=== PATIENT | male | born 1955 | race Caucasian/White ===

== ENCOUNTER 2020-10-21 10:09 | Emergency (ER) | payer MEDICARE, SELFPAY ==
[2020-10-21 10:20] VITALS: BP 147/86; PULSE 77; RESP 18; TEMP 36.9; O2SAT 97; BMI 22.6
--- NOTE | 2020-10-21 10:51 | ED_ITS ---
HPI - General Adult General Chief complaint: General Medical <SHANIQUE Gonzalez Last Filed: 10/21/20 17:59> Stated complaint: DEHYDRATION <SHANIQUE Gonzalez Last Filed: 10/21/20 17:59> Time Seen by Provider: 10/21/20 10:45 <SHANIQUE Gonzalez Last Filed: 10/21/20 17:59> Source: patient <SHANIQUE Gonzalez Last Filed: 10/21/20 17:59> Mode of arrival: ambulatory <SHANIQUE Gonzalez Last Filed: 10/21/20 17:59> Limitations: no limitations <SHANIQUE Gonzalez Last Filed: 10/21/20 17:59> History of Present Illness HPI narrative: Patient presents to ED requesting IV fluids for hydration. Patient was sent by Kalie blake to received IV fluids. Patient having viral syndrome for the past 4 days such as fever, nausea, vomiting, and body aches. Patient states he started having symptoms after his granddaughter had similar symptoms. Patient had blood work at [facility] urgent care yesterday and called him this morning informed his lab was normal and only think he needed was fluids for hydration and follow-up with PCP. Patient urine showed mild ketones. Patient denies any headache, photophobia, chest pain, shortness of breath, abdominal pain, dysuria, hematuria, flank pain. <SHANIQUE Gonzalez Last Filed: 10/21/20 17:59> Related Data Allergies/adverse reactions: Allergies Allergy/AdvReac Type Severity Reaction Status Date / Time No Known Allergies Allergy Verified 10/21/20 10:45 <SHANIQUE Gonzalez Last Filed: 10/21/20 17:59> Review of Systems Review of Systems: Yes all other systems are reviewed and are negative <SHANIQUE Gonzalez Last Filed: 10/21/20 17:59> Eyes: Eyes: Reports as per HPI and Reports no additional eye complaints <SHANIQUE Gonzalez Last Filed: 10/21/20 17:59> ENT: Reports system reviewed and no additional complaints, except as documente d and Reports as per HPI <SHANIQUE Gonzalez Last Filed: 10/21/20 17:59> Cardiovascular: Cardiovascular: Reports as per HPI and Reports no additional cardiovascular complaints <SHANIQUE Gonzalez - Last Filed: 10/21/20 17:59> Respiratory: Respiratory: Reports as per HPI and Reports no additional respiratory complaints <SHANIQUE Gonzalez - Last Filed: 10/21/20 17:59> Gastrointestinal: Gastrointestinal: Reports as per HPI and Reports no additional gastrointestinal complaints <SHANIQUE Gonzalez - Last Filed: 10/21/20 17:59> Genitourinary: Genitourinary: Reports no additional male genitourinary complaints and Reports as per HPI <SHANIQUE Gonzalez - Last Filed: 10/21/20 17:59> Musculoskeletal: Musculoskeletal: Reports no additional musculoskeletal complaints and Reports as per HPI <SHANIQUE Gonzalez - Last Filed: 10/21/20 17:59> Neurologic: Reports system reviewed and no additional complaints, except as documented and Reports as per HPI <SHANIQUE Gonzalez - Last Filed: 10/21/20 17:59> Psychiatric: Psychiatric: Reports no additional psychiatric complaints and Reports as per HPI <SHANIQUE Gonzalez - Last Filed: 10/21/20 17:59> [facility] Past Medical History Medical History: Medical History (Updated 10/22/20 @ 00:01 by Dennys Mendez) Hernia Menieres disease <SHANIQUE Gonzalez - Last Filed: 10/21/20 17:59> Social History Social History: Social History Advance Directives: Yes Advance Directives Information Provided: No Advance Directives on File: No <SHANIQUE Gonzalez - Last Filed: 10/21/20 17:59> Physical Exam Vital Signs: Vital Signs: Last Vital Signs Temp 98.5 F 10/21/20 10:20 Pulse 77 10/21/20 10:20 Resp 18 10/21/20 10:20 BP 147/86 H 10/21/20 10:20 Pulse Ox 97 10/21/20 10:20 Body Mass Index 22.6 <SHANIQUE Gonzalez - Last Filed: 10/21/20 17:59> Vital Signs: Last Vital Signs Temp 98.5 F 10/21/20 10:20 Pulse 77 10/21/20 10:20 Resp 18 10/21/20 10:20 BP 147/86 H 10/21/20 10:20 Pulse Ox 97 04/20/21 10:20 Body Mass Index 22.6 <Socrates Daley MD - Last Filed: 10/29/20 17:00> Const: General: cooperative, healthy appearing, comfortable, no acute distress, well developed, alert, awake and Physically active <SHANIQUE Gonzalez Last Filed: 10/21/20 17:59> Orientation/consciousness: patient oriented x3 <SHANIQUE Gonzalez Last Filed: 10/21/20 17:59> HENMT: Head: Yes normal to inspection, Yes No palpable skull fracture present, Yes normocephalic, Yes atraumatic, No Patton's sign, No contusion, No cranial bruits, No hematoma, No laceration, No occipital foramen tenderness, No palpable skull fracture, No raccoon eyes, No scalp lesion, No scalp tenderness, No Temporal artery tenderness present and No periorbital ecchymosis <SHANIQUE Gonzalez Last Filed: 10/21/20 17:59> Eyes: General: appearance normal, both eyes and all related structures <SHANIQUE Gonzalez Last Filed: 10/21/20 17:59> Neck: Neck: Yes normal visual inspection, Yes full ROM, Yes no lymphadenopathy, Yes no meningeal signs, Yes trachea midline, Yes supple and No tender <SHANIQUE Gonzalez Last Filed: 10/21/20 17:59> Chest: Chest palpation & inspection: normal inspection of the chest and normal palpation of entire chest wall <SHANIQUE Gonzalez Last Filed: 10/21/20 17:59> Resp: Effort & Inspection: normal respiratory effort and able to speak in complete sentences <SHANIQEU Gonzalez Last Filed: 10/21/20 17:59> Cardio: Jugular venous distension: no JVD <SHANIQUE Gonzalez Last Filed: 10/21/20 17:59> Heart sounds: S1 normal heart sound present and S2 normal heart sound present <SHANIQUE Gonzalez Last Filed: 10/21/20 17:59> GI: Inspection: Yes normal to inspection and No abdominal wall ecchymosis <SHANIQUE Gonzalez Last Filed: 10/21/20 17:59> Palpation (GI): Soft to palpation, not firm, nontender, no guarding and not rigid <SHANIQUE Gonzalez - Last Filed: 10/21/20 17:59> : General: Yes CVA tenderness and Yes no CVA tenderness <SHANIQUE Gonzalez - Last Filed: 10/21/20 17:59> Back/Spine/Pelvis: Back: no CVA tenderness, CVA tenderness and No back tenderness <SHANIQUE Gonzalez - Last Filed: 10/21/20 17:59> Skin: General skin exam: no rashes or lesions noted and elasticity normal <SHANIQUE Gonzalez - Last Filed: 10/21/20 17:59> Neuro: General: patient oriented x3, no meningeal signs and CN's II-XI intact bilaterally <SHANIQUE Gonzalez - Last Filed: 10/21/20 17:59> Cranial nerves: Yes CN's II-XII intact bilaterally <SHANIQUE Gonzalez - Last Filed: 10/21/20 17:59> Extrem: General: Yes normal to inspection and Yes full ROM <SHANIQUE Gonzalez - Last Filed: 10/21/20 17:59> Psych: Appearance: grossly normal, well kempt and not disheveled <SHANIQUE Gonzalez - Last Filed: 10/21/20 17:59> Course Course Course Narrative: Patient and refused repeat labs and the only wanted IV fluids. They state they were informed they had normalized lab work in [facility] and just needed IV hydration. They also refused x-ray and urinalysis which is they said was normal at [facility]. He also refused COVID swab due to the COVID swab being negative yesterday. He had the urine results with them and I reviewed which showed 2+ ketones which indicates dehydration. Will just give IV fluids as requested by patient and . <SHANIQUE Gonzalez - Last Filed: 10/21/20 17:59> I have reviewed the chart <Socrates Daley MD - Last Filed: 10/29/20 17:00> Discharge Plan Discharge Clinical Impression: Dehydration <SHANIQUE Gonzalez Last Filed: 10/21/20 17:59> Patient Disposition: Home, Self-Care <SHANIQUE Gonzalez - Last Filed: 10/21/20 17:59> Instructions: Dehydration (ED), Viral Syndrome (ED) <SHANIQUE Gonzalez - Last Filed: 10/21/20 17:59> Additional Instructions: Return to the ED immediately for chest pain, shortness of breath, abdominal pain, headache, photophobia, neck stiffness, intractable fever, chills, weakness, or any other concerning symptoms. <SHANIQUE Gonzalez - Last Filed: 10/21/20 17:59> Referrals: Kingston Herring MD [Primary Care Provider] - 2 days (Dehydration. Viral syndrome) <SHANIQUE Gonzalez - Last Filed: 10/21/20 17:59> Interventions: ED Discharge Assessment Last Done: 10/21/20 13:04 <SHANIQUE Gonzalez - Last Filed: 10/21/20 17:59> Discharge Date/Time: 10/21/20 13:06 <SHANIQUE Gonzalez - Last Filed: 10/21/20 17:59> Print Language: Mongolian <SHANIQUE Gonzalez - Last Filed: 10/21/20 17:59>
[2020-10-21] MEDS: 0.9 % Sodium Chloride 1,000 ML 999 ML IV ×2 (11:10)
== END 2020-10-21 13:06 | disposition home or self-care (01) ==
PROVIDERS: Emergency Provider Emergency Medicine; PCP Internal Medicine
DX: E86.0 Dehydration (principal); B34.9 Viral infection, unspecified
CPT/HCPCS: 96360; 99283; 99284